=== PATIENT | female | born 1985 | race Caucasian/White ===

== ENCOUNTER 2016-10-26 16:50 | Inpatient (IN) | payer MEDICAID ==
[~2016-10-26] VITALS: Ht 160 cm; Wt 63.6 kg
[2016-10-26 17:02] VITALS: BP 98/62
[2016-10-26] MEDS ORDERED: PROZAC20 MG PO (17:03)
[2016-10-26] MEDS ORDERED: TOPAMAX200 MG PO (17:03)
[2016-10-26] MEDS ORDERED: ATIVAN1 MG PO (17:03)
[2016-10-26 17:41] LABS: BASO % 0.4 % (0.0-1.0); EOS # 0.1 10*3/uL (0.0-0.4); HEMATOCRIT 38.7 % (37.0-47.0); HEMOGLOBIN 12.8 g/dl (12.0-16.0); LYMPH # 2.1 10*3/uL (1.3-4.4); LYMPH % 29.8 % (27.0-41.0); MEAN CELL VOLUME 87.8 fl (81.0-99.0); MEAN CORPUSCULAR HGB CONC 33.1 g/dl (33.0-37.0); MEAN PLATELET VOLUME 9.7 fl (9.6-12.3); MONO # 0.4 10*3/uL (0.1-1.0); MONO % 5.7 % (3.0-9.0); NEUT # 4.4 10*3/uL (2.3-7.9); NEUT % 61.8 % (47.0-73.0); PLATELET COUNT AUTOMATED 283 10*3/uL (130-400); RED BLOOD COUNT 4.41 10*6/uL (4.10-5.10); RED CELL DISTRI WIDTH 12.5 % (0-14.5)
[2016-10-26 17:56] LABS: ALBUMIN 3.5 gm/dl (3.1-4.5); ALKALINE PHOSPHATASE 88 U/L (45-117); BILIRUBIN, TOTAL 0.2 mg/dl (0.2-1.0); BUN 15 mg/dl (7-24); CARBON DIOXIDE 31 mmol/L (21-32); CHLORIDE 104 mmol/L (98-107); EST GLOM FILT AFRICAN AMERICAN > 60 ml/min; GLUCOSE 75 mg/dL (65-99); POTASSIUM 4.2 mmol/L (3.5-5.1); SGOT/AST 24 IU/L (3-35); SGPT/ALT 33 U/L (12-78); SODIUM 141 mmol/L (136-145); TOTAL PROTEIN 7.6 gm/dL (6.4-8.2)
[2016-10-26 17:58] LABS: B-hCG (QUALITATIVE) NEGATIVE (NEGATIVE)
[2016-10-26 18:24] LABS: INTERNATIONAL NORM RATIO 0.9 (2.0-3.5); PROTHROMBIN TIME 9.8 SECONDS (9.0-12.4)
[2016-10-26 20:15] VITALS: BP 106/57; BP 154/80
[2016-10-26 21:51] LABS: BILIRUBIN NEGATIVE (NEGATIVE); BLOOD 3+ (NEGATIVE); CLARITY SL CLOUDY (CLEAR); COLOR YELLOW (YELLOW); GLUCOSE NEGATIVE (NEGATIVE); KETONE NEGATIVE (NEGATIVE); LEUKO ESTERASE NEGATIVE (NEGATIVE); NITRITE POSITIVE (NEGATIVE); PH 5.5 (5.0-9.0); PROTEIN NEGATIVE (NEGATIVE); SPECIFIC GRAVITY >= 1.030 (1.005-1.030); UROBILINOGEN 0.2 E.U./dl (0.2-1.0)
[2016-10-26 21:59] LABS: BACTERIA 4+; WBC 21-30 wbc/hpf (0-5)
[2016-10-26 22:00] LABS: URINE AMPHETAMINES < 1000 (1000ng/ml); URINE BARBITURATES < 200 (200ng/ml); URINE COCAINE > 300 (300ng/ml)
[2016-10-27] VITALS (8 sets, daily range): BP systolic 85–102; BP diastolic 46–60
[2016-10-28] VITALS: BP 72/40
[2016-10-28 01:29] VITALS: BP 90/50
[2016-10-28 08:00] VITALS: BP 93/41
[2016-10-28 16:00] VITALS: BP 92/46
[2016-10-28 20:00] VITALS: BP 86/54
[2016-10-29] VITALS: BP 80/46
[2016-10-29 06:47] LABS: BASO % 0.4 % (0.0-1.0); EOS # 0.2 10*3/uL (0.0-0.4); EOS % 2.9 % (1.0-4.0); HEMATOCRIT 37.5 % (37.0-47.0); HEMOGLOBIN 12.3 g/dl (12.0-16.0); LYMPH # 2.9 10*3/uL (1.3-4.4); LYMPH % 52.3 % (27.0-41.0); MEAN CELL VOLUME 88.4 fl (81.0-99.0); MEAN CORPUSCULAR HGB CONC 32.8 g/dl (33.0-37.0); MEAN PLATELET VOLUME 10.2 fl (9.6-12.3); MONO # 0.5 10*3/uL (0.1-1.0); MONO % 9.4 % (3.0-9.0); NEUT # 1.9 10*3/uL (2.3-7.9); NEUT % 34.8 % (47.0-73.0); PLATELET COUNT AUTOMATED 298 10*3/uL (130-400); RED BLOOD COUNT 4.24 10*6/uL (4.10-5.10); RED CELL DISTRI WIDTH 12.4 % (0-14.5); WHITE BLOOD COUNT 5.6 10*3/uL (4.8-10.8)
[2016-10-29 07:12] LABS: EST GLOM FILT AFRICAN AMERICAN > 60 ml/min
[2016-10-29 08:05] VITALS: BP 100/60
[2016-10-29 12:00] VITALS: BP 86/54
[2016-10-29 16:00] VITALS: BP 79/46
[2016-10-29 20:00] VITALS: BP 95/41
[2016-10-30] VITALS: BP 92/44
[2016-10-30 08:00] VITALS: BP 96/50
[2016-10-30] MEDS ORDERED: ZOFRAN 4 MG ED2 TAB PO (10:55)
[2016-10-30] MEDS ORDERED: ATARAX,VISTARIL50 MG PO (10:55)
[2016-10-30] MEDS ORDERED: ROPINIROLE HYD0.5 MG PO (10:55)
[2016-10-30 12:00] VITALS: BP 89/52; BP 95/60
== END 2016-10-30 14:44 | disposition home or self-care (01) | DRG 897 ==
LOC: ED 16:50 → 5E 17:47 → EDHOLD 17:47 → 5E 18:21
PROVIDERS: Internal Medicine; Internal Medicine Hospice and Palliative Medicine
DX: F11.23 Opioid dependence with withdrawal (principal); R00.1 Bradycardia, unspecified; N39.0 Urinary tract infection, site not specified; W57.XXXA Bitten or stung by nonvenomous insect and other nonvenomous arthropods, initial encounter; F14.10 Cocaine abuse, uncomplicated; F19.10 Other psychoactive substance abuse, uncomplicated; F32.9 Major depressive disorder, single episode, unspecified; F41.1 Generalized anxiety disorder; G43.909 Migraine, unspecified, not intractable, without status migrainosus; G25.81 Restless legs syndrome; Z84.89 Family history of other specified conditions; Z79.899 Other long term (current) drug therapy; Y93.89 Activity, other specified; Y92.89 Other specified places as the place of occurrence of the external cause; Y99.8 Other external cause status

== ENCOUNTER 2020-04-08 15:12 | Inpatient (IN) | payer OTHER ==
[~2020-04-08] VITALS: Ht 160 cm; Wt 68.5 kg
[~2020-04-08 15:12] MED LIST: ATARAX,VISTARIL50 MG PO; ATIVAN1 MG PO; PROZAC20 MG PO; ROPINIROLE HYD0.5 MG PO; TOPAMAX200 MG PO; ZOFRAN 4 MG ED2 TAB PO
[2020-04-08 15:24] VITALS: BP 129/73
[2020-04-08 16:04] LABS: BASO % 0.3 % (0.0-1.0); EOS # 0.1 10*3/uL (0.0-0.4); EOS % 0.7 % (1.0-4.0); HEMATOCRIT 40.8 % (37.0-47.0); LYMPH # 2.4 10*3/uL (1.3-4.4); LYMPH % 31.8 % (27.0-41.0); MEAN CELL VOLUME 86.1 fl (81.0-99.0); MEAN CORPUSCULAR HGB 28.9 pg (27.0-31.0); MEAN CORPUSCULAR HGB CONC 33.6 g/dl (33.0-37.0); MEAN PLATELET VOLUME 10.2 fl (9.6-12.3); MONO # 0.6 10*3/uL (0.1-1.0); MONO % 7.3 % (3.0-9.0); NEUT # 4.6 10*3/uL (2.3-7.9); NEUT % 59.6 % (47.0-73.0); PLATELET COUNT AUTOMATED 268 10*3/uL (130-400); RED BLOOD COUNT 4.74 10*6/uL (4.10-5.10); RED CELL DISTRI WIDTH 12.2 % (0-14.5); WHITE BLOOD COUNT 7.7 10*3/uL (4.8-10.8)
[2020-04-08 16:08] LABS: BILIRUBIN Negative (Negative); BLOOD Negative (Negative); CLARITY Clear (Clear); COLOR Yellow (Yellow); GLUCOSE Negative (Negative); KETONE Negative (Negative); LEUKO ESTERASE Trace (Negative); NITRITE Negative (Negative); SPECIFIC GRAVITY 1.025 (1.001-1.030)
[2020-04-08 16:15] LABS: URINE AMPHETAMINES < 1000 (1000ng/ml); URINE BARBITURATES < 200 (200ng/ml); URINE BENZODIAZEPINES < 200 (200ng/ml); URINE CANNABINOIDS (THC) < 50 (50ng/ml); URINE COCAINE > 300 (300ng/ml); URINE METHADONE < 300 (300ng/ml); URINE OPIATES > 300 (300ng/ml)
[2020-04-08 16:16] LABS: URINE PHENCYCLIDINE < 25 (25ng/ml)
[2020-04-08 16:19] LABS: ALBUMIN 3.9 gm/dl (3.1-4.5); ALKALINE PHOSPHATASE 70 U/L (45-117); BUN 19 mg/dl (7-24); CHLORIDE 106 mmol/L (98-107); CREATININE 0.86 mg/dL (0.55-1.02); POTASSIUM 3.8 mmol/L (3.5-5.1); SGOT/AST 19 IU/L (3-35); SGPT/ALT 48 U/L (12-78); SODIUM 141 mmol/L (136-145); TOTAL PROTEIN 7.7 gm/dL (6.4-8.2)
[2020-04-08 16:25] LABS: BACTERIA TRACE; CALCIUM OXALATE CRYSTALS TR
[2020-04-08 17:40] VITALS: BP 125/65
--- NOTE | 2020-04-08 17:45 | NUR ---
34 year old FEMALE admitted to room # 516-1 for stabilization. Reports an addiction to [facility] last used 10 hours prior to admission. Compliant with admission procedure.
[2020-04-08 20:00] VITALS: BP 114/62
--- NOTE | 2020-04-08 20:00 | NUR ---
PATIENT RESTING IN BED. VERY ANXIOUS AND SWEATING. WHEN ASKED HER SYMPTOMS SHE STATES "I JUST DON'T FEEL WELL AT ALL." ASSESSMENT COMPLETE. PATIENT HAD A DUFFLE BAG AND PURSE IN HER ROOM. I DID PUT A NAME BAND ON THESE ITEMS AND SENT THE DUFFLE BAG WITH SECURITY AND WILL GET A LOCK BOX FOR PATIENTS PURSE PER POLICY.
--- NOTE | 2020-04-08 20:39 | NUR ---
MEDICATED WITH PRN REQUIP FOR CO RESTLESSNESS.
--- NOTE | 2020-04-08 20:40 | NUR ---
NOTIFIED PATIENT VERY ANXIOUS AND NEEDS SOMETHING . NO IV. VISTARIL ALREADY GIVEN AND TOO EARLY FOR IT. PO ATIVANIS NOT TO START UNTIL 04/10 AND BENEDRYL IS IV. PER HE WILL LOOK AND PUT SOMETHING ON.
--- NOTE | 2020-04-08 20:59 | NUR ---
PRN BENEDRYL GIVEN FOR BREATHROUGH ANXIETY. WILL ASSESS EFFECTIVENESS. CALL LIGHT IN REACH.
--- NOTE | 2020-04-08 21:20 | NUR ---
24 HR chart check completed.
--- NOTE | 2020-04-08 21:59 | NUR ---
PATIENT SLEEPING. RINA EFFECTIVE.
--- NOTE | 2020-04-08 23:56 | NUR ---
MEDICATED WITH PRN ROBAXIN FROR MUSCLE SPASMS AND PRN RESTORIL PER PT REQUEST FOR SOMETHING TO HELP HER SLEEP. WILL ASSESS EFFECTIVENESS.
[2020-04-09] VITALS: BP 111/71
--- NOTE | 2020-04-09 | NUR ---
PATIENT REFUSED HER SUBUTEX. ENCOURAGED HER TO TAKE IT AND EDUCATED HER ON IT AND SHE STATED SHE STILL DID NOT WANT TO TAKE IT BECAUSE ALL IT DOES IT MAKE HER FEEL WORSE.
--- NOTE | 2020-04-09 00:56 | NUR ---
PRN ROBAXIN AND RESTORIL EFFECTIVE.
[2020-04-09 06:18] LABS: BASO % 0.4 % (0.0-1.0); EOS # 0.1 10*3/uL (0.0-0.4); EOS % 1.1 % (1.0-4.0); HEMATOCRIT 40.9 % (37.0-47.0); LYMPH # 2.9 10*3/uL (1.3-4.4); LYMPH % 39.4 % (27.0-41.0); MEAN CELL VOLUME 86.7 fl (81.0-99.0); MEAN CORPUSCULAR HGB 29.2 pg (27.0-31.0); MEAN CORPUSCULAR HGB CONC 33.7 g/dl (33.0-37.0); MEAN PLATELET VOLUME 10.7 fl (9.6-12.3); MONO # 0.6 10*3/uL (0.1-1.0); MONO % 7.7 % (3.0-9.0); NEUT # 3.8 10*3/uL (2.3-7.9); NEUT % 51.3 % (47.0-73.0); PLATELET COUNT AUTOMATED 255 10*3/uL (130-400); RED BLOOD COUNT 4.72 10*6/uL (4.10-5.10); RED CELL DISTRI WIDTH 12.5 % (0-14.5); WHITE BLOOD COUNT 7.4 10*3/uL (4.8-10.8)
[2020-04-09 06:47] LABS: ALBUMIN 3.6 gm/dl (3.1-4.5); ALKALINE PHOSPHATASE 70 U/L (45-117); BUN 20 mg/dl (7-24); CHLORIDE 110 mmol/L (98-107); CHOLESTEROL 162 mg/dL (<200); CREATININE 0.72 mg/dL (0.55-1.02); HDL CHOLESTEROL 74 mg/dl (40-60); LDL CHOLESTEROL 74 mg/dL (9-159); POTASSIUM 3.5 mmol/L (3.5-5.1); SGOT/AST 23 IU/L (3-35); SGPT/ALT 44 U/L (12-78); SODIUM 142 mmol/L (136-145); TOTAL PROTEIN 7.5 gm/dL (6.4-8.2); TRIGLYCERIDES 71 mg/dl (<150); VLDL CHOLESTEROL 14 mg/dL (6-40)
[2020-04-09 06:52] LABS: THYROID STIM HORMONE (HS) 0.286 uIU/ml (0.358-4.75)
[2020-04-09 06:58] LABS: VITAMIN D, 25-HYDROXY 20.6 ng/mL (30-100)
[2020-04-09 08:00] VITALS: BP 110/60
--- NOTE | 2020-04-09 08:30 | NUR ---
PT REFUSED SUBUTEX. PT EDUCATED ON IMPORTANCE OF TAKING THE MEDICATION. PT STILL REFUSED DESPITE EDUCATION. WILL MONITOR.
--- NOTE | 2020-04-09 09:19 | NUR ---
PT GIVEN PO BENTYL, ROBAXIN, REQUIP AND VISTARIL PER PRN ORDER FOR C/O STOMACH CRAMPS, MUSCLE ACHES, RESTLESSNESS AND ANXIETY. WILL MONITOR EFFECTIVENESS. CALL LIGHT WITHIN REACH. VSS.
--- NOTE | 2020-04-09 10:19 | NUR ---
Patient resting. Responding to scheduled medications with fewer complaints of pain and anxiety.
[2020-04-09 12:00] VITALS: BP 108/56
[2020-04-09 16:00] VITALS: BP 88/48
--- NOTE | 2020-04-09 16:17 | NUR ---
PT GIVEN PO BENEDRYL, ROBAXIN AND BENTYL PER PRN ORDER FOR C/O ANXIETY, MUSCLE ACHES AND STOMACH CRAMPS. WILL MONITOR EFFECTIVENESS. PT REFUSED SCHEDULED SUBUTEX DESPITE EDUCATION.
--- NOTE | 2020-04-09 17:03 | NUR ---
NOTIFIED REGARDING BP 88/48 AND PATIENT REFUSING SUBUTEX. PT ASYMPTOMATIC. THIS NURSE WILL ENCOURAGE PATIENT TO DRINK FLUIDS PER . NO NEW ORDERS AT THIS TIME. WILL CONTINUE TO MONITOR.
--- NOTE | 2020-04-09 18:03 | NUR ---
Patient resting. Responding to scheduled medications with fewer complaints of pain and anxiety.
--- NOTE | 2020-04-09 19:00 | NUR ---
ASSUMED CARE FOR THIS PT AT THIS TIME. PT RESTING QUEITLY IN BED W/EYES CLOSED. CALL LIGHT IN REACH. DINNER TRAY ON TRAY TABLE UNTOUCHED.
[2020-04-09 20:00] VITALS: BP 110/71
--- NOTE | 2020-04-09 21:58 | NUR ---
URINE ORDERED AND SENT. NEGATIVE. PT C/O DIAPHORESIS, INSOMNIA, ANXIETY. WILL MEDICATE W/AVAILABLE PRN'S. CALL LIGHT IN REACH.
--- NOTE | 2020-04-09 22:05 | NUR ---
PT C/O INSOMNIA, DIAPHORESIS, ANXIETY, MUSCLE ACHES. MEDICATED W/RESTORIL, TYLENOL, BENADRYL, ROBAXIN. PT STATES SHE WILL TAKE SUBUTEX. 12AM SUBUTEX DOSE GIVEN AT THIS TIME TO AVOID HAVING TO DISTURB PT AFTER SLEEPING PILL WAS GIVEN. CALL LIGHT IN REACH. DOOR CLOSED PER PT REQUEST.
--- NOTE | 2020-04-09 23:00 | NUR ---
PT RESTING QUIETLY IN BED. PRN MEDS EFFECTIVE FOR RELIEF OF WITHDRAWAL SYMPTOMS. CALL LIGHT IN REACH.
[2020-04-10] VITALS: BP 102/70
[2020-04-10 08:00] VITALS: BP 120/74
--- NOTE | 2020-04-10 08:49 | NUR ---
PATIENT AGREEABLE WITH PO SCHEDULED SUBUTEX. PT ALSO REQUESTED AND RECEIVED PO ROBAXIN, BENEDRYL AND BENTYL PER PRN ORDER FOR C/O MUSCLE ACHES, ANXIETY AND ABD CRAMPS. WILL MONITOR EFFECTIVENESS. VSS. CALL LIGHT WITHIN REACH.
--- NOTE | 2020-04-10 09:49 | NUR ---
Patient resting. Responding to scheduled medications with fewer complaints of pain and anxiety.
--- NOTE | 2020-04-10 11:00 | NUR ---
TYLENOL GIVEN PER PRN ORDER FOR C/O HEADACHE. WILL MONITOR EFFECTIVENESS.
--- NOTE | 2020-04-10 11:26 | NUR ---
XANAX X1 DOSE GIVEN PER ORDER FOR C/O INCREASED ANXIETY. WILL MONITOR EFFECTIVENESS.
--- NOTE | 2020-04-10 11:32 | NUR ---
REQUIP GIVEN PER PRN ORDER FOR C/O RESTLESS LEGS. WILL MONITOR EFFECTIVENESS.
[2020-04-10 12:00] VITALS: BP 118/68
--- NOTE | 2020-04-10 12:00 | NUR ---
TYLENOL RELIEVING HEADACHE PER PT. WILL CONTINUE TO MONITOR.
--- NOTE | 2020-04-10 12:26 | NUR ---
Patient resting. Responding to scheduled medications with fewer complaints of pain and anxiety.
--- NOTE | 2020-04-10 12:32 | NUR ---
REQUIP RELIEVING RESTLESSNESS PER PT. WILL CONTINUE TO MONITOR.
[2020-04-10 16:00] VITALS: BP 101/60
--- NOTE | 2020-04-10 17:47 | NUR ---
TYLENOL GIVEN PER PRN ORDER FOR C/O HEADACHE. WILL MONITOR EFFECTIVENESS.
--- NOTE | 2020-04-10 17:50 | NUR ---
PT MEDICATED WITH PO BENTYL, BENEDRYL AND ROBAXIN PER PRN ORDER FOR C/O STOMACH CRAMPS, ANXIETY AND MUSCLE ACHES. WILL MONITOR EFFECTIVENESS.
--- NOTE | 2020-04-10 18:50 | NUR ---
Patient resting. Responding to scheduled medications with fewer complaints of pain and anxiety.
--- NOTE | 2020-04-10 19:00 | NUR ---
PT C/O H/A, MILD NAUSEA, AND RLS. NO PRN'S AVAILABLE AT THIS TIME. PT PREVIOUSLY MEDICATED WITH ALL PRN'S. CALL LIGHT IN REACH.
[2020-04-10 20:00] VITALS: BP 106/56
[2020-04-11] VITALS: BP 116/70
[2020-04-11 08:00] VITALS: BP 113/72
--- NOTE | 2020-04-11 08:40 | NUR ---
PT COMPLAINS OF A HEADACHE AND LEG PAIN. STATES MUSCLES IN LEGS ARE SPASMING. PRN ROBAXIN, REQUIP, AND TYLENOL ADMINISTERED AT THIS TIME. WILL MONITOR FOR EFFECTIVENESS.
--- NOTE | 2020-04-11 09:15 | NUR ---
PT ASLEEP. PRN MEDICATIONS CONSIDERED EFFECTIVE.
--- NOTE | 2020-04-11 09:50 | NUR ---
[facility] STAFF IN TO SEE PATIENT. PATIENT IS WANTING TO FOLLOW UP WITH AN OUTPATIENT TREATMENT FACILITY IN HER AREA. PATIENT DECLINED [facility] STAFF SETTING UP APPOINTMENT. PATIENT WANTS TO SCHEDULE HER OWN APPOINTMENT. [employer] SU[employer]
[2020-04-11] MEDS ORDERED: VISTARIL50 MG PO (10:55)
[2020-04-11] MEDS ORDERED: VITAMIN D350 MCG PO (10:55)
--- NOTE | 2020-04-11 13:00 | NUR ---
Discharge instructions reviewed with patient/family. Patient receptive and verbalizes understanding. Follow-up care arranged. Written instructions given to patient/family. AMADOR WHIPPLE
== END 2020-04-11 13:00 | disposition home or self-care (01) | DRG 897 ==
LOC: ED 15:12 → 5E 16:21 → EDHOLD 16:21 → 5E 17:11
PROVIDERS: Internal Medicine; Nurse Practitioner Family; ADMIT Student in an Organized Health Care Education/Training Program; ATTEND Student in an Organized Health Care Education/Training Program
DX: F11.23 Opioid dependence with withdrawal (principal); F41.9 Anxiety disorder, unspecified; G25.81 Restless legs syndrome; R73.9 Hyperglycemia, unspecified; G43.009 Migraine without aura, not intractable, without status migrainosus; F32.9 Major depressive disorder, single episode, unspecified; F14.90 Cocaine use, unspecified, uncomplicated; E66.3 Overweight; Z81.1 Family history of alcohol abuse and dependence; Z81.3 Family history of other psychoactive substance abuse and dependence

== ENCOUNTER 2020-12-01 16:21 | Inpatient (IN) | payer OTHER ==
[~2020-12-01] VITALS: Ht 160 cm; Wt 66.9 kg
[~2020-12-01 16:21] MED LIST changes: +VISTARIL50 MG PO; +VITAMIN D350 MCG PO
[2020-12-01 16:27] VITALS: BP 115/67
[2020-12-01 17:25] LABS: BASO % 0.4 % (0.0-1.0); EOS # 0.2 10*3/uL (0.0-0.4); EOS % 2.3 % (1.0-4.0); HEMATOCRIT 39.8 % (37.0-47.0); LYMPH # 2.2 10*3/uL (1.3-4.4); LYMPH % 32.7 % (27.0-41.0); MEAN CELL VOLUME 86.7 fl (81.0-99.0); MEAN CORPUSCULAR HGB 28.5 pg (27.0-31.0); MEAN CORPUSCULAR HGB CONC 32.9 g/dl (33.0-37.0); MEAN PLATELET VOLUME 9.9 fl (9.6-12.3); MONO # 0.5 10*3/uL (0.1-1.0); MONO % 6.7 % (3.0-9.0); NEUT # 3.9 10*3/uL (2.3-7.9); NEUT % 57.8 % (47.0-73.0); PLATELET COUNT AUTOMATED 234 10*3/uL (130-400); RED BLOOD COUNT 4.59 10*6/uL (4.10-5.10); RED CELL DISTRI WIDTH 13.9 % (0-14.5); WHITE BLOOD COUNT 6.8 10*3/uL (4.8-10.8)
[2020-12-01 17:39] LABS: BILIRUBIN Negative (Negative); BLOOD Negative (Negative); CLARITY Clear (Clear); COLOR Yellow (Yellow); GLUCOSE Negative (Negative); KETONE Trace (Negative); LEUKO ESTERASE 1+ (Negative); NITRITE Negative (Negative); SPECIFIC GRAVITY 1.025 (1.001-1.030)
[2020-12-01 17:43] LABS: ALBUMIN 3.2 gm/dl (3.1-4.5); ALKALINE PHOSPHATASE 80 U/L (45-117); BUN 14 mg/dl (7-24); CHLORIDE 106 mmol/L (98-107); CREATININE 0.72 mg/dL (0.55-1.02); POTASSIUM 4.1 mmol/L (3.5-5.1); SGOT/AST 47 IU/L (3-35); SGPT/ALT 75 U/L (12-78); SODIUM 137 mmol/L (136-145); TOTAL PROTEIN 7.2 gm/dL (6.4-8.2)
[2020-12-01 17:48] LABS: URINE AMPHETAMINES < 1000 (1000ng/ml); URINE BARBITURATES < 200 (200ng/ml); URINE BENZODIAZEPINES > 200 (200ng/ml); URINE CANNABINOIDS (THC) < 50 (50ng/ml); URINE COCAINE > 300 (300ng/ml); URINE METHADONE < 300 (300ng/ml); URINE OPIATES < 300 (300ng/ml); URINE PHENCYCLIDINE < 25 (25ng/ml)
[2020-12-01 17:48] LABS: ACETAMINOPHEN (TYLENOL) < 5.0 ug/ml (10-30); ETHYL ALCOHOL < 3.0 mg/dl (<3)
[2020-12-01 17:59] LABS: BACTERIA TRACE; EPITHELIAL CELLS 21-30; MUCOUS 1+
[2020-12-01 19:33] VITALS: BP 111/71
[2020-12-01 20:02] VITALS: BP 98/60
[2020-12-02] VITALS: BP 105/71
[2020-12-02 08:00] VITALS: BP 112/70
[2020-12-02 12:00] VITALS: BP 109/64
[2020-12-02 16:00] VITALS: BP 107/67
[2020-12-02 20:00] VITALS: BP 102/64
[2020-12-03] VITALS: BP 112/70
[2020-12-03 08:08] VITALS: BP 110/68
[2020-12-03 12:01] VITALS: BP 113/69
[2020-12-03 16:06] VITALS: BP 121/63
[2020-12-03 20:00] VITALS: BP 104/56
[2020-12-04] VITALS: BP 105/67
[2020-12-04 08:03] VITALS: BP 111/69
== END 2020-12-04 13:35 | disposition home or self-care (01) | DRG 897 ==
LOC: ED 16:21 → 5E 17:38 → EDHOLD 17:38 → 5E 19:02
PROVIDERS: Emergency Medicine; ADMIT Family Medicine; ATTEND Family Medicine
DX: F11.23 Opioid dependence with withdrawal (principal); G25.81 Restless legs syndrome; G43.909 Migraine, unspecified, not intractable, without status migrainosus; F43.10 Post-traumatic stress disorder, unspecified; F32.9 Major depressive disorder, single episode, unspecified; R74.01 Elevation of levels of liver transaminase levels; F13.939 Sedative, hypnotic or anxiolytic use, unspecified with withdrawal, unspecified; F41.9 Anxiety disorder, unspecified; Z81.1 Family history of alcohol abuse and dependence; Z81.3 Family history of other psychoactive substance abuse and dependence